=== PATIENT | female | born 1990 | race Caucasian/White ===

== ENCOUNTER 2018-06-19 11:35 | Emergency (ER) | payer SELFPAY ==
--- NOTE | 2018-06-19 12:18 | EDPHY ---
H & P Stated Complaint: "anxiety attacks" stopped klonopin 01/17, quitting smoking Time Seen by Provider: 06/19/18 12:16 HPI/ROS: HPI: This is a 27-year-old female who presents with Chief Complaint: "anxiety attacks" stopped klonopin 01/17, quitting smoking Location: psych Quality: Panic attack Duration: Months Signs and Symptoms: No suicidal ideation, no homicidal ideation, no insomnia breath, no chest pain, no fever Timing: Acute, intermittent episodes Severity: Moderate Context: Patient reports that she has a history of generalized anxiety disorder since the age of [age] years old, moved to [place] approximately 1 year ago, and stop taking her Klonopin since January 2017. She reports at 1 point she was using 1-2 pills per day to control her anxiety and panic attacks. She reports that over the last several months her panic attacks have started to increase in frequency occurring every several days. Has been smoking marijuana without any relief. Missing working and calling out including today. 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 Patient has not established care with mental health since she moved. She denies any history of bipolar disorder, suicidal ideation, homicidal ideation, hallucinations. Modifying Factors: Marijuana no relief Comment: ROS: see HPI Constitutional: No fever, no chills, no weight loss Eyes: No blurred vision Respiratory: No shortness of breath, no cough Cardiovascular: No chest pain Gastrointestinal: No nausea, no vomiting, no diarrhea Genitourinary: No dysuria Extremities: No myalgias Neurologic: No weakness, no numbness Skin: No rashes Hematologic: No bruising, no bleeding MEDICAL/SURGICAL/SOCIAL HISTORY: Medical history: Generalized anxiety disorder, depression, learning disability Surgical history: Denies Social history: Employed. Family history noncontributory. CONSTITUTIONAL: Extremely polite and cooperative adult white female, awake and alert, no obvious distress HEENT: Atraumatic and normocephalic, PERRL, EOMI. Nares patent; no rhinorrhea; no nasal mucosal edema. Tympanic membranes clear. Oropharynx clear, no exudate and moist pink mucosa. Airway patent. No lymphadenopathy. No meningismus. Cardiovascular: Normal S1/S2, regular rate, regular rhythm, without murmur rub or gallop. PULMONARY/CHEST: Symmetrical and nontender. Clear to auscultation bilaterally. Good air movement. No accessory muscle usage. ABDOMEN: Soft, nondistended, nontender, no rebound, no guarding, no peritoneal signs, no masses or organomegaly. No CVAT. EXTREMITIES: 2/2 pulses, strength 5/5, no deformities, no clubbing, no cyanosis or edema. NEUROLOGICAL: no focal neuro deficits. GCS 15. SKIN: Warm and dry, no erythema. no rash. Good capillary refill. PSYCH: Good eye contact, no flight of ideas, organized thought process, good insight and judgment, no auditory hallucinations, no visual hallucinations, no suicidal ideation with a plan, no homicidal ideation, no paranoia Source: Patient Exam Limitations: No limitations - Personal History LMP (Females 10-55): Extended Cycle BCP/Inj Current Tetanus/Diphtheria Vaccine: No Current Tetanus Diphtheria and Acellular Pertussis (TDAP): No - Medical/Surgical History Hx Asthma: No Hx Chronic Respiratory Disease: No Hx Diabetes: No Hx Cardiac Disease: No Hx Renal Disease: No Hx Cirrhosis: No Hx Alcoholism: No Hx HIV/AIDS: No Hx Splenectomy or Spleen Trauma: No Other PMH: anxiety/depression learning disability - Social History Smoking Status: Current some day smoker Constitutional: Initial Vital Signs Temperature (C) 36.7 C 06/19/18 11:38 Heart Rate 103 H 06/19/18 11:38 Respiratory Rate 16 06/19/18 11:38 Blood Pressure 112/78 06/19/18 11:38 O2 Sat (%) 98 06/19/18 11:38 O2 Delivery Mode Room Air Allergies/Adverse Reactions: No Known Allergies Allergy (Unverified 06/19/18 11:37) Home Medications: Medication Instructions Recorded hydrOXYzine HCL [Vistaril 50MG 50 mg PO Q6 PRN #12 tab 06/19/18 (RX)] Medical Decision Making ED Course/Re-evaluation: Vital signs reviewed and show mild tachycardia upon arrival. Patient does not meet requirements for M1 Hold or detainer. Patient was given a prescription for hydroxyzine and referral to [facility]. This patient was seen under the supervision of my secondary supervising physician. I evaluated care for this patient independently. Discussed this patient with Dr. Joiner. Differential Diagnosis: Differential diagnosis includes but is not limited to do benzodiazepine withdrawal, intoxicant use, depression, anxiety. Departure - Departure Disposition: Home, Routine, Self-Care Clinical Impression: Generalized anxiety disorder with panic attacks Condition: Good Instructions: Generalized Anxiety Disorder (ED) Additional Instructions: Please establish care with [facility] regarding your generalized anxiety disorder. Referrals: [facility],. [Clinic] - As per Instructions Stand Alone Forms: Work Excuse Prescriptions: hydrOXYzine HCL [Vistaril 50MG (RX)] 50 mg PO Q6 PRN #12 tab PRN Reason: Anxiety
[2018-06-19 12:30] VITALS: BP 115/75
--- NOTE | 2018-06-19 14:52 | ASDISCHSUM ---
Discharge Information Plan Status:Home with No Needs Medically Cleared to Leave: Discharge Date:06/19/2018 12:30 PM CM D/C Disposition:Home, Routine, Self-Care ADT D/C Disposition:Home, Routine, Self-Care Projected Discharge Date:06/19/2018 12:30 PM Transportation at D/C:None or Unknown Discharge Delay Reason: Follow-Up Date:06/19/2018 12:30 PM Discharge Slot: Final Diagnosis: Placement Information Patient Contact Information Contact Name:YAO Relationship:Mother Address: Work Phone: City: [facility] Phone: State/Zip Code: Email: Financial Information Financial Class:BC Primary Plan Desc:O OUT OF STATE Primary Plan Number:[id number] Secondary Plan Desc: Secondary Plan Number: Assessment Information Intervention Information Intervention Type:Community Resources Date of Service:06/19/2018 02:50 PM Patient Type:Emergency Room Staff Member:KUN Bowles, Padma Hours:0.25 Discipline:[place] Manager Severity: Comment:[facility] and [facility] Electronic Service Technician ing Center resources provided.
== END 2018-06-19 12:30 | disposition home or self-care (01) ==
DX: F41.1 Generalized anxiety disorder (principal); F17.200 Nicotine dependence, unspecified, uncomplicated

== ENCOUNTER 2019-02-26 11:01 | Emergency (ER) | payer OTHER ==
--- NOTE | 2019-02-26 11:20 | EDPHY ---
H & P Stated Complaint: slipped on ice -Fooshed on L wrist this am Source: Patient Exam Limitations: No limitations - Personal History LMP (Females 10-55): 22-28 Days Ago - Medical/Surgical History Hx Asthma: No Hx Chronic Respiratory Disease: No Hx Diabetes: No Hx Cardiac Disease: No Hx Renal Disease: No Hx Cirrhosis: No Hx Alcoholism: No Hx HIV/AIDS: No Hx Splenectomy or Spleen Trauma: No Other PMH: anxiety/depression - Social History Smoking Status: Current some day smoker Time Seen by Provider: 02/26/19 11:20 HPI/ROS: HPI: This is a 28-year-old female who presents with Chief Complaint: slipped on ice -Fooshed on L wrist this am Location: Left wrist Quality: injury Duration: 2 hr prior to arrival Signs and Symptoms: No bleeding, no radiation, no numbness, no weakness, no tingling, no incontinence, + decreased range of motion, + swelling, + pain, no fever Timing: Acute, constant Severity: Moderate Context: Patient is right-hand dominant, was walking her 2 small dogs this morning when 1 of them tried to pull away from her and she slipped on the ice. She reports that she fell forward landing on her outstretched left hand and wrist. She felt immediate pain in the medial aspect of her left wrist. Within an hour she had swelling and bruising. She still walked to working upon arrival at her job her boss noted the deformity on her left wrist in encourage her to go to the emergency room for further evaluation. Notes increased pain with flexion and extension. Denies LOC/head injury/neck pain/dizziness/nausea/ vomiting/amnesia. Modifying Factors: No [id number] medications or ice pack applied Comment: ROS: A comprehensive 10 system review of systems is otherwise negative aside from elements mentioned in the history of present illness. MEDICAL/SURGICAL/SOCIAL HISTORY: Medical history: Anxiety, depression. LMP 2-3 weeks ago Surgical history: Denies Social history: Employed at [employer]. Current every day smoker. CONSTITUTIONAL: Tearful, polite and cooperative, adult white female, awake and alert, no obvious distress HEENT: Atraumatic and normocephalic. NECK: supple, no midline tenderness, flexion 45 degrees, extension 45 degrees, right and left lateral flexion 45 degrees. No meningismus. Cardiovascular: Normal S1/S2, regular rate, regular rhythm, without murmur rub or gallop. PULMONARY/CHEST: Symmetrical and nontender. no crepitus. Clear to auscultation bilaterally. Good air movement. No accessory muscle usage. EXTREMITIES: 2/2 pulses, strength 5/5, left WRIST: Moderate swelling noted over the radial aspect with bruising; Extension decreased to 30, flexion decreased to 40, radial deviation decreased to 5 degree, ulnar deviation decreased to 15, no scaphoid tenderness, no tenderness over ulnar styloid, moderate tenderness over radial styloid. Able to wiggle all 5 fingers without any difficulty. Left elbow and shoulder exam are within normal limits with full range of motion. DIP/PIP/MCP flexion/extension intact with good light touch sensation. no deformities, no clubbing, no cyanosis or edema. NEUROLOGICAL: no focal neuro deficits. GCS 15. Light touch sensation intact. SKIN: Warm and dry, no erythema. no rash. Good capillary refill. (Uma Amador) Constitutional: Initial Vital Signs Temperature (C) 36.6 C 02/26/19 11:04 Heart Rate 88 02/26/19 11:04 Respiratory Rate 18 02/26/19 11:04 Blood Pressure 135/98 H 02/26/19 11:04 O2 Sat (%) 98 02/26/19 11:04 O2 Delivery Mode Room Air Allergies/Adverse Reactions: No Known Allergies Allergy (Unverified 06/19/18 11:37) Home Medications: Medication Instructions Recorded Citalopram 02/26/19 Klonopin 02/26/19 oxyCODONE/APAP 5/325 [Percocet 1 - 2 tab PO Q4H PRN #10 tab 02/26/19 5/325 (*)] Medical Decision Making - Diagnostics Imaging Results: Imaging Impressions Wrist X-Ray 02/26/19 11:07 Impression: Probable intraarticular fracture of the distal left radius, as detailed above. Procedures: Procedure: Splint placement. A left sugar-tong Ortho Glass splint and sling were applied. After application of the splint I returned and re-examined the patient. The splint was adequately immobilizing the joint and distal to the splint the patient's circulation and sensation was intact. (Uma Amador) ED Course/Re-evaluation: Vital signs reviewed and stable upon arrival. Fall was mechanical in nature and did not hit head or lose consciousness. Ice pack applied Left wrist x-ray ordered and my read via PAC shows left distal radial neck fracture with minimal displacement and no angulation. Given Percocet x1 and ibuprofen 600 mg Placed in sugar-tong Ortho Glass splint, sling, orthopedic follow-up No signs of neurovascular compromise/tenting of skin/compartment syndrome/ extremities and joints examined above and below area of concern and are neurovascularly intact. This patient was seen under the supervision of my secondary supervising physician. I evaluated care for this patient independently. (Uma Amador) Differential Diagnosis: Wrist injury differential includes but is not limited to radial fracture, distal fracture, scaphoid fracture, metacarpal fracture, sprain, nerve injury, tendon injury. (Uma Amador) Other Provider: The patient was evaluated and managed by the Physician Sueding Machine Operator. My co- signature indicates that I have reviewed this chart and I agree with the findings and plan of care as documented. I am the secondary supervising physician. (Katina Polk) - Data Points Medications Given: Discontinued Medications Ibuprofen (Motrin) 600 mg PO EDNOW ONE Stop: 02/26/19 11:25 Last Admin: 02/26/19 11:27 Dose: 600 mg Ondansetron HCl (Zofran Odt) 4 mg PO EDNOW ONE Stop: 02/26/19 12:10 Last Admin: 02/26/19 12:11 Dose: 4 mg Ondansetron HCl (Zofran Odt 4 Mg Prepack#2) 1 btl TAKEHOME EDNOW ONE Stop: 02/26/19 12:10 Last Admin: 02/26/19 12:11 Dose: 1 btl Oxycodone/Acetaminophen (Percocet 5/325) 1 tab PO EDNOW ONE Stop: 02/26/19 11:24 Last Admin: 02/26/19 11:27 Dose: 1 tab Departure - Departure Disposition: Home, Routine, Self-Care Clinical Impression: Closed fracture of left distal radius Qualifiers: Encounter type: initial encounter Fracture morphology: unspecified fracture morphology Qualified Code(s): S52.502A - Unspecified fracture of the lower end of left radius, initial encounter for closed fracture Condition: Good Instructions: Ondansetron (By mouth), Wrist Fracture in Adults (ED), How to Use a Sling (ED), Splint Care (ED) Additional Instructions: Keep the splint dry and in place until seen by Orthopedics. Use the sling while out of bed for comfort. Take Tylenol 650 mg every 4 hours and/or Ibuprofen 600 mg every 8 hours with food as needed for pain. Use Percocet every 6 hours as needed for severe/break through pain. Do not use Tylenol and Percocet concomitantly. Apply ice for 30 minutes at a time; 2-3 times per day for the next 1-2 days. Follow up with Orthopedics in 5-7 days at which time they will evaluate and recommend with you if conservative management versus surgery is indicated. Referrals: Sharath Kim MD [Medical Doctor] - As per Instructions Prescriptions: oxyCODONE/APAP 5/325 [Percocet 5/325 (*)] 1 - 2 tab PO Q4H PRN #10 tab PRN Reason: Pain, Severe
[2019-02-26] MEDS ORDERED: OXYCODONE/APAP 5/325 TAB PO ONE (11:23)
[2019-02-26] MEDS ORDERED: IBUPROFEN 600 MG TAB PO ONE (11:24)
[2019-02-26 12:05] VITALS: BP 133/97
[2019-02-26] MEDS ORDERED: ONDANSETRON 4MG PREPACK#2 BTL TAKEHOME ONE ×2 (12:08→12:09)
[2019-02-26] MEDS ORDERED: ONDANSETRON DISINTEGRATING 4 MG TAB ONE (12:08)
[2019-02-26] MEDS ORDERED: ONDANSETRON DISINTEGRATING 4 MG TAB PO ONE (12:09)
== END 2019-02-26 12:21 | disposition home or self-care (01) ==
PROC: 2W3DX1Z Immobilization of Left Lower Arm using Splint (ICD-10-PCS; principal; 2019-02-26)
DX: S52.502A Unspecified fracture of the lower end of left radius, initial encounter for closed fracture (principal); F32.9 Major depressive disorder, single episode, unspecified; F41.9 Anxiety disorder, unspecified; W01.0XXA Fall on same level from slipping, tripping and stumbling without subsequent striking against object, initial encounter; Y93.K1 Activity, walking an animal
CPT/HCPCS: A4565

== ENCOUNTER 2019-03-31 23:46 | Emergency (ER) | payer OTHER ==
[2019-03-31] MEDS ORDERED: NS 1,000 ML IV ONE (23:51)
--- NOTE | 2019-03-31 23:54 | EDPHY ---
H & P Time Seen by Provider: 03/31/19 23:52 HPI/ROS: HPI CHIEF COMPLAINT: Alcohol Intoxication , fall, head laceration. HISTORY OF PRESENT ILLNESS: Patient is a 28-year-old female she arrives to the emergency room highly intoxicated with alcohol. Patient was apparently outside of a restaurant for [employer] and tripped over something falling backwards striking her head against a railing. Unclear if there was LOC. She had multiple alcoholic beverages. EMS reports at least 5 drinks. No drug use. Not on any blood thinners. She arrives to the emergency room intoxicated with alcohol, however moves all her extremities. Mentating appropriately in tearful. Past Medical History: Anxiety Past Surgical History: No recent surgery Social History: Alcohol this evening. Large amount. Family History: Noncontributory ROS REVIEW OF SYSTEMS: 10 Systems were reviewed and negative with the exception of the elements mentioned in the history of present illness. Exam Constitutional Intoxicated, triage nursing summary reviewed, vital signs reviewed, smells of alcohol Eyes normal conjunctivae and sclera, horizontal beating nystagmus consistent acute alcohol intoxication, otherwise pupils equal and react to light HENT head and neck exam, patient in a rigid cervical collar placed by EMS, no midline cervical spine pain, right occiput shows a scalp hematoma and a vertically oriented 7 cm laceration, moist mucus membranes, no epistaxis, neck supple/ no meningismus, no raccoon eyes. Respiratory clear to auscultation bilaterally, normal breath sounds, no respiratory distress, no wheezing. Cardiovascular rate normal, regular rhythm, no murmur, no edema, distal pulses normal. Gastrointestinal soft, non-tender, no rebound, no guarding, normal bowel sounds, no distension, no pulsatile mass. Genitourinary no CVA tenderness. Musculoskeletal no midline vertebral tenderness, full range of motion, no calf swelling, no tenderness of extremities, no meningismus, good pulses, neurovascularly intact. Skin pink, warm, & dry, no rash, skin atraumatic. Neurologic intoxicated with alcohol,, alert and oriented x 3, AAOx3, moves all 4 extremities equally, motor intact, sensory intact, CN II-XII intact, , normal vision, normal speech. Psychiatric normal mood/affect. Heme/Lymph/Immune no lymphadenopathy. Differential Diagnosis: Includes but is not limited to in a particular order acute alcohol intoxication, alcohol abuse, dehydration, electrolyte abnormality , nausea vomiting from acute alcohol intoxication Medical Decision Making: Plan for this patient IV establishment with IV fluid bolus, Zofran as needed for nausea vomiting, CT scan head without contrast and CT cervical spine without contrast for trauma. Patient is a posterior scalp laceration will that will need to be cleaned and then repaired. Re-evaluation: Serum alcohol level 429 at 12:37 a.m.. Patient still pending CT scan head without contrast CT cervical spine without contrast for trauma. Laceration has been clean by auto body technician. Verbal Consent Obtained. Laceration Repair Procedure: Verbal Consent was obtained, Under sterile conditions, patient is a 7 cm vertically oriented right occiput scalp laceration, The wound was copiously irrigated with sterile fluid, the wound was explored for foreign bodies there were none visualized, the wound was explored with a sterile glove to the base. There are no deep structures involved, including no arterial injury. Eleven jesus i He had good close approximation of the wound edges. She Tolerated this well. Patient understands to have jesus out in 7-8 days. Keep the area clean, dry and intact, warm soapy water for cleaning. Patient reports to me tetanus shot up-to-date. Patient's serum alcohol level very high. She will need time to sober. CT scan head without contrast and CT cervical spine without contrast no acute intracranial findings no acute cervical spine fracture. 0304: Patient re-evaluated this time resting comfortably she ambulated well to the bathroom without difficulty, she is clinically sober. She answers questions appropriately. She understands have her jesus removed in 7 days. Additionally understands return to the emergency room if develops worsening symptoms includes headache, vomiting, fever. Source: Patient, EMS - Medical/Surgical History Hx Asthma: No Hx Chronic Respiratory Disease: No Hx Diabetes: No Hx Cardiac Disease: No Hx Renal Disease: No Hx Cirrhosis: No Hx Alcoholism: No Hx HIV/AIDS: No Hx Splenectomy or Spleen Trauma: No Other PMH: anxiety/depression - Social History Smoking Status: Current some day smoker Constitutional: Initial Vital Signs Temperature (C) 36.8 C 03/31/19 23:50 Heart Rate 121 H 03/31/19 23:50 Respiratory Rate 18 03/31/19 23:50 Blood Pressure 157/129 H 03/31/19 23:50 O2 Sat (%) 96 03/31/19 23:50 O2 Delivery Mode Room Air Allergies/Adverse Reactions: No Known Allergies Allergy (Unverified 06/19/18 11:37) Home Medications: Medication Instructions Recorded Citalopram 02/26/19 Klonopin 02/26/19 Medical Decision Making - Data Points Laboratory Results: Laboratory Results 03/31/19 23:50 03/31/19 23:50 Medications Given: Discontinued Medications Sodium Chloride (Ns) 1,000 mls @ 0 mls/hr IV EDNOW ONE; Wide Open PRN Reason: Protocol Stop: 03/31/19 23:52 Last Admin: 04/01/19 00:04 Dose: 1,000 mls Sodium Chloride (Ns) 1,000 mls @ 0 mls/hr IV ONCE ONE PRN Reason: Wide Open Stop: 04/01/19 01:01 Last Admin: 04/01/19 01:20 Dose: 1,000 mls Departure - Departure Disposition: Home, Routine, Self-Care Clinical Impression: Alcoholic intoxication Qualifiers: Complication of substance-induced condition: uncomplicated Qualified Code(s): F10.920 - Alcohol use, unspecified with intoxication, uncomplicated Laceration of head Qualifiers: Encounter type: initial encounter Location of open wound of head: scalp Foreign body presence: without foreign body Qualified Code(s): S01.01XA - Laceration without foreign body of scalp, initial encounter Condition: Good Instructions: Laceration (ED), Alcohol Intoxication (ED), Staple Care (ED) Additional Instructions: 1. You have jesus in you're right scalp. These need to be removed in 7 days. Referrals: NONE *PRIMARY CARE P,. [Unknown] - As per Instructions
[2019-04-01] LABS: PLATELET COUNT 333 10^3/uL (150-400)
[2019-04-01] MEDS ORDERED: NS 1,000 ML IV ONE (01:00)
[2019-04-01 02:36] VITALS: BP 118/73
== END 2019-04-01 03:20 | disposition home or self-care (01) ==
LOC: EDUNIT#
PROC: 0HQ0XZZ Repair Scalp Skin, External Approach (ICD-10-PCS; principal; 2019-03-31)
DX: S01.01XA Laceration without foreign body of scalp, initial encounter (principal); F10.920 Alcohol use, unspecified with intoxication, uncomplicated; E86.9 Volume depletion, unspecified; W01.198A Fall on same level from slipping, tripping and stumbling with subsequent striking against other object, initial encounter
CPT/HCPCS: G0480